=== PATIENT | female | born 1935 | race Caucasian/White ===

== ENCOUNTER 2020-05-19 13:11 | Emergency (ER) | payer MEDICARE, OTHER ==
[~2020-05-19] VITALS: Ht 152 cm; Wt 91.0 kg
--- NOTE | 2020-05-19 13:22 | ED General ---
General Stated Complaint: SYNCOPE Source of Information: Patient Exam Limitations: No Limitations History of Present Illness Date Seen by Provider: May 19, 2020 Time Seen by Provider: 13:20 Initial Comments To ER with reports of syncope while eating at [employer] with friends. She felt some rumbling in her stomach, got up to go to the bathroom. She then returned to her table from the bathroom and slumped forward briefly losing consciousness. She felt fine all morning prior to this and she feels back to normal now. She has never had this happen before. She lives in [place] and is in the process of moving to [place]. Primary care is out of [place]. Timing/Duration: 1/2 Hour Severity: Moderate Associated Systoms: Denies Symptoms Allergies and Home Medications Allergies Coded Allergies: No Known Drug Allergies (Unverified , 05/19/20) Patient Home Medication List Home Medication List Reviewed: Yes Review of Systems Review of Systems Constitutional: see HPI EENTM: see HPI Respiratory: no symptoms reported Cardiovascular: no symptoms reported Genitourinary: no symptoms reported Musculoskeletal: no symptoms reported Skin: no symptoms reported Psychiatric/Neurological: No Symptoms Reported Hematologic/Lymphatic: No Symptoms Reported Physical Exam Vital Signs Vital Signs - First Documented 05/19/20 13:11 Temp 35.7 Pulse 60 Resp 20 B/P (MAP) 119/63 (81) Pulse Ox 95 O2 Delivery Room Air Capillary Refill : Height, Weight, BMI Height: '" Weight: lbs. oz. kg; BMI Method: General Appearance: No Apparent Distress, WD/WN, Other (Alert and oriented stable vitals no distress very pleasant very talkative) Eyes: Bilateral Eye Normal Inspection, Bilateral Eye PERRL, Bilateral Eye EOMI HEENT: PERRL/EOMI, TMs Normal Neck: Full Range of Motion, Normal Inspection Respiratory: Normal Breath Sounds, No Accessory Muscle Use, No Respiratory Distress Cardiovascular: Regular Rate, Rhythm, Normal Peripheral Pulses Gastrointestinal: Normal Bowel Sounds, Soft Extremity: Normal Capillary Refill, Normal Inspection Neurologic/Psychiatric: Alert, Oriented x3 Skin: Normal Color, Warm/Dry Progress/Results/Core Measures Suspected Sepsis SIRS Temperature: Pulse: Respiratory Rate: Laboratory Tests 05/19/20 13:20: White Blood Count 5.3 Blood Pressure / Mean: Laboratory Tests 05/19/20 13:20: Creatinine 0.96, Platelet Count 247, Total Bilirubin 0.7 Results/Orders Lab Results Laboratory Tests Test 05/19/20 13:16 05/19/20 13:20 Range/Units Glucometer 103 70-110 MG/DL White Blood Count 5.3 4.3-11.0 10^3/uL Red Blood Count 4.35 3.80-5.11 10^6/uL Hemoglobin 13.6 11.5-16.0 g/dL Hematocrit 40 35-52 % Mean Corpuscular Volume 93 80-99 fL Mean Corpuscular Hemoglobin 31 25-34 pg Mean Corpuscular Hemoglobin Concent 34 32-36 g/dL Red Cell Distribution Width 14.4 10.0-14.5 % Platelet Count 247 130-400 10^3/uL Mean Platelet Volume 8.6 L 9.0-12.2 fL Immature Granulocyte % (Auto) 0 % Neutrophils (%) (Auto) 37 L 42-75 % Lymphocytes (%) (Auto) 48 H 12-44 % Monocytes (%) (Auto) 10 0-12 % Eosinophils (%) (Auto) 4 0-10 % Basophils (%) (Auto) 1 0-10 % Neutrophils # (Auto) 2.0 1.8-7.8 10^3/uL Lymphocytes # (Auto) 2.6 1.0-4.0 10^3/uL Monocytes # (Auto) 0.5 0.0-1.0 10^3/uL Eosinophils # (Auto) 0.2 0.0-0.3 10^3/uL Basophils # (Auto) 0.0 0.0-0.1 10^3/uL Immature Granulocyte # (Auto) 0.0 0.0-0.1 10^3/uL Sodium Level 140 135-145 MMOL/L Potassium Level 3.6 3.6-5.0 MMOL/L Chloride Level 107 98-107 MMOL/L Carbon Dioxide Level 21 21-32 MMOL/L Anion Gap 12 5-14 MMOL/L Blood Urea Nitrogen 25 H 7-18 MG/DL Creatinine 0.96 0.60-1.30 MG/DL Estimat Glomerular Filtration Rate 56 BUN/Creatinine Ratio 26 Glucose Level 114 H 70-105 MG/DL Calcium Level 9.2 8.5-10.1 MG/DL Corrected Calcium 9.1 8.5-10.1 MG/DL Magnesium Level 1.8 1.6-2.4 MG/DL Total Bilirubin 0.7 0.1-1.0 MG/DL Aspartate Amino Transf (AST/SGOT) 26 5-34 U/L Alanine Aminotransferase (ALT/SGPT) 19 0-55 U/L Alkaline Phosphatase 35 L 40-136 U/L Troponin I < 0.028 <0.028 NG/ML Total Protein 6.7 6.4-8.2 GM/DL Albumin 4.1 3.2-4.5 GM/DL My Orders Orders - VIOLET HAHN APRN Cbc With Automated Diff (05/19/20 13:19) Comprehensive Metabolic Panel (05/19/20 13:19) Ua Culture If Indicated (05/19/20 13:19) Ed Iv/Invasive Line Start (05/19/20 13:19) Ekg Tracing (05/19/20 13:19) Troponin I (05/19/20 13:19) Magnesium (05/19/20 13:19) Vital Signs/I&O 05/19/20 13:11 Temp 35.7 Pulse 60 Resp 20 B/P (MAP) 119/63 (81) Pulse Ox 95 O2 Delivery Room Air Capillary Refill : Departure Communication (Admissions) 1440-still asymptomatic, states she is not worried about this because this has happened before. She feels perfectly fine still and is without symptoms. She would like some water to drink so that she can provide us with a urine sample. Impression Primary Impression: Syncope Disposition: 01 HOME, SELF-CARE Condition: Stable Departure-Patient Inst. Decision time for Depature: 14:50 Patient Instructions: Syncope (Fainting) (DC) Add. Discharge Instructions: 1. Follow-up with your doctor this week for recheck. Return to ER for any concerns. Scripts [Fexofenadine] No Conflict Check Prov: VIOLET HAHN APRN 05/19/20 [Gabapentin] No Conflict Check Prov: VIOLET HAHN APRN 05/19/20 [Aspirin] No Conflict Check Prov: VIOLET HAHN APRN 05/19/20 [Citalopram] No Conflict Check Prov: VIOLET HAHN APRN 05/19/20 [Carvedilol] No Conflict Check Prov: VIOLET HAHN APRN 05/19/20 [Aprazoline] No Conflict Check Prov: VIOLET HAHN APRN 05/19/20 [Lovestatin] No Conflict Check Prov: VIOLET HAHN APRN 05/19/20 [Montelukast] No Conflict Check Prov: VIOLET HAHN APRN 05/19/20 [Furosemide] No Conflict Check Prov: VIOLET HAHN APRN 05/19/20 [Amlodipine] No Conflict Check Prov: VIOLET HAHN APRN 05/19/20 VIOLET HAHN APRN May 19, 2020 13:22
[2020-05-19 13:27] LABS: BASOPHILS % (AUTO) 1 % (0-10); EOSINOPHILS # (AUTO) 0.2 10^3/uL (0.0-0.3); EOSINOPHILS % (AUTO) 4 % (0-10); HEMATOCRIT 40 % (35-52); HEMOGLOBIN 13.6 g/dL (11.5-16.0); LYMPHOCYTES # (AUTO) 2.6 10^3/uL (1.0-4.0); LYMPHOCYTES % (AUTO) 48 % (12-44); MEAN CORPUSCULAR HEMOGLOBIN 31 pg (25-34); MEAN CORPUSCULAR HGB CONC 34 g/dL (32-36); MEAN CORPUSCULAR VOLUME 93 fL (80-99); MEAN PLATELET VOLUME 8.6 fL (9.0-12.2); MONOCYTES # (AUTO) 0.5 10^3/uL (0.0-1.0); MONOCYTES % (AUTO) 10 % (0-12); NEUTROPHILS % (AUTO) 37 % (42-75); PLATELET COUNT 247 10^3/uL (130-400); WHITE BLOOD COUNT 5.3 10^3/uL (4.3-11.0)
[2020-05-19 13:39] LABS: ALBUMIN 4.1 GM/DL (3.2-4.5); CHLORIDE 107 MMOL/L (98-107); POTASSIUM 3.6 MMOL/L (3.6-5.0); SODIUM 140 MMOL/L (135-145)
[2020-05-19] MEDS ORDERED: ASPIRIN (13:39)
[2020-05-19] MEDS ORDERED: MONTELUKAST (13:39)
[2020-05-19] MEDS ORDERED: FEXOFENADINE (13:39)
[2020-05-19] MEDS ORDERED: LOVESTATIN (13:39)
[2020-05-19] MEDS ORDERED: CITALOPRAM (13:39)
[2020-05-19] MEDS ORDERED: GABAPENTIN (13:39)
[2020-05-19] MEDS ORDERED: AMLODIPINE (13:39)
[2020-05-19] MEDS ORDERED: [UNRECOGNIZED DRUG - OTHER] (13:39)
[2020-05-19] MEDS ORDERED: FUROSEMIDE (13:39)
[2020-05-19] MEDS ORDERED: CARVEDILOL (13:39)
[2020-05-19 13:41] LABS: CALCIUM 9.2 MG/DL (8.5-10.1)
[2020-05-19 13:42] LABS: GLUCOSE 114 MG/DL (70-105); TOTAL PROTEIN 6.7 GM/DL (6.4-8.2)
[2020-05-19 13:43] LABS: CARBON DIOXIDE 21 MMOL/L (21-32)
[2020-05-19 13:44] LABS: BILIRUBIN,TOTAL 0.7 MG/DL (0.1-1.0)
[2020-05-19 13:45] LABS: ALKALINE PHOSPHATASE 35 U/L (40-136); CREATININE SERUM 0.96 MG/DL (0.60-1.30); GFR ESTIMATED 56
[2020-05-19 13:47] LABS: BUN/CREATININE RATIO 26
[2020-05-19 13:48] LABS: ALANINE AMINOTRANSFERASE 19 U/L (0-55); MAGNESIUM 1.8 MG/DL (1.6-2.4)
[2020-05-19 16:00] LABS: BILIRUBIN,URINE NEGATIVE (NEGATIVE); CLARITY,URINE CLEAR; COLOR,URINE YELLOW; GLUCOSE, URINE (UA) NEGATIVE (NEGATIVE); KETONES,URINE TRACE (NEGATIVE); LEUKOCYTE ESTERASE ,URINE NEGATIVE (NEGATIVE); NITRITE,URINE NEGATIVE (NEGATIVE); PH,URINE 5.5 (5-9); PROTEIN,URINE NEGATIVE (NEGATIVE)
[2020-05-19 16:11] LABS: BACTERIA,URINE TRACE /HPF; SQUAMOUS EPITHELIAL CELL,UR RARE /HPF; WBC,URINE RARE /HPF
[2020-05-19 16:33] VITALS: BP 136/58
--- NOTE | 2020-05-19 16:33 | NUR ---
PT DISCHARGED TO HOME W/ INSTR. PT TO F/U W/ PCP THIS WEEK ET RETURN IF SYMPTOMS CHANGE OR GET WORSE. UNDERSTANDING VOICED.
== END 2020-05-19 16:34 | disposition home or self-care (01) ==
LOC: ER 13:13
DX: R55 Syncope and collapse (principal)
CPT/HCPCS: 36415; 80053; 81000; 82962; 83735; 84484; 85025; 93005

== ENCOUNTER → 2020-09-16 | Outpatient (CLI) | payer MEDICARE, OTHER ==
[~2020-09-16] MED LIST: AMLODIPINE; ASPIRIN; CARVEDILOL; CITALOPRAM; FEXOFENADINE; FUROSEMIDE; GABAPENTIN; LOVESTATIN; MONTELUKAST; [UNRECOGNIZED DRUG - OTHER]
--- NOTE | 2020-09-16 08:43 | Diagnostic Imaging Report ---
PROCEDURE: MR imaging of the brain without contrast. TECHNIQUE: Multiplanar, multisequence MR imaging of the brain was performed without contrast. INDICATION: Memory loss. Tremors. COMPARISON: none Findings: No acute ischemia, mass, or hemorrhage. Focal areas of T2 hyperintense signal are seen in the periventricular and subcortical white matter. The ventricles and cortical sulci are prominent. The basilar cisterns are symmetric and unremarkable. There is flattening of the pituitary. The major intracranial flow voids are intact. The brainstem and posterior fossa are unremarkable. The paranasal sinuses and mastoid air cells demonstrate normal signal characteristics. The globes and orbits are symmetric and unremarkable. The scalp and calvarium have a normal appearance. Impression: 1. No acute ischemia, mass, or hemorrhage. 2. 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 3. Generalized parenchymal volume loss. Dictated by: Dictated on workstation # [id number]
== END ==
LOC: RAD 08:00
PROVIDERS: ATTEND Physician Assistant
DX: G31.9 Degenerative disease of nervous system, unspecified (principal); I67.82 Cerebral ischemia; R41.3 Other amnesia; R25.1 Tremor, unspecified
CPT/HCPCS: 70551